=== PATIENT | male | born 1955 | race Caucasian/White ===

== ENCOUNTER 2016-10-29 18:34 | Observation (INO) | payer OTHER ==
[~2016-10-29] VITALS: Ht 170.2 cm; Wt 49.0 kg
[~2016-10-29 18:34] MED LIST: CHLORDIAZEPOXID25 MG PO; LEVAQUIN500 MG PO; LIBRIUM25 MG PO; LISINOPRIL5 MG PO; OMEPRAZOLE40 M1 PO; OXAYDO5 MG PO; PEPCID20 MG PO; QUETIAPINE FUM100 MG PO; TUMS500 MG PO
[2016-10-29 21:50] LABS: HEMATOCRIT 38.1 % (38.0-50.0); MCH 34.3 PG (29.0-34.0); MCHC 34.6 G/DL (30.0-36.0); MEAN PLAT.VOLUME 8.8 uM^3 (9.0-12.4); PLATELET COUNT 220 K/uL (156-360); RBC DIS.WIDTH-CV 13.3 % (11.8-14.6); RBC DIS.WIDTH-SD 46.7 % (39-53); RED BLOOD COUNT 3.85 M/uL (4.00-5.50)
[2016-10-29 21:59] LABS: CHLORIDE 109 mEq/L (99-109); POTASSIUM 3.8 mEq/L (3.7-5.4); SODIUM 142 mEq/L (136-147)
[2016-10-29 22:01] LABS: GLUCOSE 106 mg/dL (70-99)
[2016-10-29 22:02] LABS: ANION GAP 8 MEQ/L (2-14)
[2016-10-29 22:03] LABS: TOTAL BILIRUBIN 0.4 mg/dL (0.0-1.0)
[2016-10-29 22:04] LABS: SERUM ETHYL ALCOHOL 268 mg/dL
[2016-10-29 22:05] LABS: ALKALINE PHOSPHATASE 130 IU/L (3-129); GFR ESTIMATE (CALCULATED) > 59 mL/min/
[2016-10-29 22:06] LABS: UREA NITROGEN (BUN) 8 mg/dL (9-23)
[2016-10-30 02:41] VITALS: BP 169/95
[2016-10-30 06:33] LABS: METH RESISTANT S AUREUS PCR NEGATIVE (NEGATIVE)
[2016-10-30 06:35] LABS: PROBE CHECK PASS; SPECIMEN PROCESSING CONTROL PASS
[2016-10-30 07:59] LABS: HEMATOCRIT 36.4 % (38.0-50.0); MCH 34.4 PG (29.0-34.0); MCHC 34.6 G/DL (30.0-36.0); MCV 99.5 FL (86-99); MEAN PLAT.VOLUME 10.1 uM^3 (9.0-12.4); PLATELET COUNT 186 K/uL (156-360); RBC DIS.WIDTH-CV 13.5 % (11.8-14.6); RBC DIS.WIDTH-SD 49.4 % (39-53); RED BLOOD COUNT 3.66 M/uL (4.00-5.50)
[2016-10-30 08:00] LABS: ALKALINE PHOSPHATASE 104 IU/L (3-129); ANION GAP 5 MEQ/L (2-14); CHLORIDE 105 MEQ/L (99-109); GFR ESTIMATE (CALCULATED) > 59 mL/min/; GLUCOSE 131 mg/dL (70-99); HDL CHOLESTEROL 48 MG/DL (Desirable>=40); LDL CHOLESTEROL 85 mg/dL (Desirable<100); NON-HDL CHOLESTEROL 106 mg/dL (Desirable<160); POTASSIUM 3.9 MEQ/L (3.7-5.4); SAMPLE HEMOLYSIS CHECK 0; SAMPLE ICTERIC CHECK 0; SAMPLE LIPEMIA CHECK 0; SODIUM 138 MEQ/L (136-147); TOTAL BILIRUBIN 0.4 MG/DL (0.0-1.0); TOTAL CHOLESTEROL 154 mg/dL (Desirable<200); TRIGLYCERIDES 105 MG/DL (Normal: <150); UREA NITROGEN (BUN) 9 mg/dL (9-23)
[2016-10-30 08:01] LABS: WHITE BLOOD COUNT 6.9 K/uL (4.1-10.2)
[2016-10-30 11:53] VITALS: BP 173/71
[2016-10-30 16:06] VITALS: BP 131/79
[2016-10-30 20:57] LABS: AMPHETAMINES QUANT VALUE 0 NG/ML; BARBITUATES QUANT VALUE 0 NG/ML; BENZODIAZEPINES, URINE SCREEN POSITIVE (200 ng/mL); MARIJUANA QUANT VALUE 0 NG/ML; OPIATES QUANTITATIVE VALUE 0 NG/ML; PHENCYCLIDINE QUANT VALUE 0 NG/ML
[2016-10-30 23:43] VITALS: BP 149/83
[2016-10-31 03:06] VITALS: BP 125/88
[2016-10-31 06:23] LABS: EOSINOPHIL COUNT 0.3 K/uL (0-0.3); HEMATOCRIT 37.9 % (38.0-50.0); IMMATURE GRANULOCYTE (%) 0.3 % (0.0-0.7); LYMPHOCYTE COUNT 2.7 K/uL (1.0-2.8); MCH 34.3 PG (29.0-34.0); MCHC 34.6 G/DL (30.0-36.0); MCV 99.2 FL (86-99); MEAN PLAT.VOLUME 10.7 uM^3 (9.0-12.4); MONOCYTE (%) 11.8 % (3-12); MONOCYTE COUNT 0.7 K/uL (0-0.8); NEUTROPHIL (%) 37.5 % (45-76); NEUTROPHIL COUNT 2.2 K/uL (1.8-6.4); NRBC (%) 0.8 /100 WBC (0-0); PLATELET COUNT 163 K/uL (156-360); RBC DIS.WIDTH-CV 12.9 % (11.8-14.6); RBC DIS.WIDTH-SD 46.4 % (39-53); RED BLOOD COUNT 3.82 M/uL (4.00-5.50)
[2016-10-31 06:50] LABS: ALKALINE PHOSPHATASE 109 IU/L (3-129); ANION GAP 9 MEQ/L (2-14); CHLORIDE 101 MEQ/L (99-109); GFR ESTIMATE (CALCULATED) > 59 mL/min/; POTASSIUM 3.5 MEQ/L (3.7-5.4); SAMPLE HEMOLYSIS CHECK 0; SAMPLE ICTERIC CHECK 0; SAMPLE LIPEMIA CHECK 0; SODIUM 134 MEQ/L (136-147); UREA NITROGEN (BUN) 14 mg/dL (9-23)
[2016-10-31 06:53] LABS: GLUCOSE 198 mg/dL (70-99); TOTAL BILIRUBIN 0.7 MG/DL (0.0-1.0)
[2016-10-31 07:11] LABS: Estimated Average Glucose 128 mg/dL (70-123); HEMOGLOBIN A1c (GLYCOHEMOGLOB) 6.1 % HGB (Below 5.7)
[2016-10-31 08:55] VITALS: BP 121/76
[2016-10-31] MEDS ORDERED: NICOTINE PATCH1 EAC2 TD (09:31)
[2016-10-31] MEDS ORDERED: FOLIC ACID1 MG PO (09:31)
[2016-10-31] MEDS ORDERED: THERAGRAN1 TABLET PO (09:31)
[2016-10-31] MEDS ORDERED: B-1100 MG PO (09:32)
[2016-10-31] MEDS ORDERED: LIBRIUM25 MG PO (09:33)
[2016-10-31 11:58] VITALS: BP 132/86
[2016-10-31] MEDS ORDERED: OXAYDO5 MG PO (13:23)
== END 2016-10-31 14:44 | disposition home or self-care (01) ==
LOC: EME 18:34 → 5WEST 10-30 00:57 → EDOF 10-30 00:57 → 5WEST 10-30 02:04
PROVIDERS: Emergency Medicine; Internal Medicine; Physician Assistant Medical; Student in an Organized Health Care Education/Training Program
DX: M19.011 Primary osteoarthritis, right shoulder (principal); F10.230 Alcohol dependence with withdrawal, uncomplicated; R25.1 Tremor, unspecified; F17.200 Nicotine dependence, unspecified, uncomplicated; I10 Essential (primary) hypertension; F32.9 Major depressive disorder, single episode, unspecified; Y90.8 Blood alcohol level of 240 mg/100 ml or more; Z86.19 Personal history of other infectious and parasitic diseases; J44.9 Chronic obstructive pulmonary disease, unspecified; R74.0 Nonspecific elevation of levels of transaminase and lactic acid dehydrogenase [LDH]; Z80.9 Family history of malignant neoplasm, unspecified
CPT/HCPCS: 70450; 71020; 73030; 80053; 80061; 80306 90; 83036; 85025; 85027; 87641; 93005; 93880; 99281; 99285; G0378; G0480; J1644; S0028

== ENCOUNTER 2016-11-19 13:13 | Inpatient (IN) | payer OTHER ==
[~2016-11-19] VITALS: Ht 170.2 cm; Wt 52.5 kg
[~2016-11-19 13:13] MED LIST changes: +B-1100 MG PO; +FOLIC ACID1 MG PO; +NICOTINE PATCH1 EAC2 TD; +THERAGRAN1 TABLET PO
[2016-11-19 16:46] LABS: HEMATOCRIT 37.7 % (38.0-50.0); MCH 33.7 PG (29.0-34.0); MCHC 34.5 G/DL (30.0-36.0); MCV 97.7 FL (86-99); MEAN PLAT.VOLUME 9.2 uM^3 (9.0-12.4); PLATELET COUNT 164 K/uL (156-360); RBC DIS.WIDTH-CV 12.8 % (11.8-14.6); RBC DIS.WIDTH-SD 46.5 % (39-53); RED BLOOD COUNT 3.86 M/uL (4.00-5.50)
[2016-11-19 16:55] LABS: WHITE BLOOD COUNT 10.8 K/uL (4.1-10.2)
[2016-11-19 16:58] LABS: CHLORIDE 107 mEq/L (99-109); POTASSIUM 3.6 mEq/L (3.7-5.4); SODIUM 141 mEq/L (136-147)
[2016-11-19 17:00] LABS: GLUCOSE 113 mg/dL (70-99)
[2016-11-19 17:01] LABS: ANION GAP 10 MEQ/L (2-14)
[2016-11-19 17:03] LABS: SERUM ETHYL ALCOHOL 257 mg/dL
[2016-11-19 17:04] LABS: GFR ESTIMATE (CALCULATED) > 59 mL/min/
[2016-11-19 17:05] LABS: UREA NITROGEN (BUN) 8 mg/dL (9-23)
[2016-11-19 17:18] LABS: AMPHETAMINE NEGATIVE (500 ng/mL); BARBITURATES NEGATIVE (200 ng/mL); BENZODIAZEPINES PRESUMPTIVE POSITIVE (150 ng/mL); COCAINE NEGATIVE (150 ng/mL); INTERNAL CONTROLS VALID? YES; METHADONE NEGATIVE (200 ng/mL); METHAMPHETAMINE NEGATIVE (500 ng/mL); OPIATES (MORPHINE) NEGATIVE (100 ng/mL); OXYCODONE NEGATIVE (100 ng/mL); PHENCYCLIDINE NEGATIVE (25 ng/mL); PROPOXYPHENE NEGATIVE (300 ng/mL); THC CANNABINOIDS NEGATIVE (50 ng/mL); TRICYCLIC ANTIDEPRESSANTS NEGATIVE (300 ng/mL)
[2016-11-19 17:19] LABS: ADD MEDTOX COMMENT Y
[2016-11-19 19:00] LABS: BENZODIAZEPINES QUANT VALUE 0 NG/ML
[2016-11-19 19:18] LABS: BENZODIAZEPINES, URINE SCREEN Negative (200 ng/mL)
[2016-11-20 04:03] VITALS: BP 153/93
[2016-11-20 07:50] VITALS: BP 167/76
[2016-11-20 14:56] VITALS: BP 152/90
[2016-11-20 19:28] VITALS: BP 141/79
[2016-11-21 10:05] VITALS: BP 113/68
[2016-11-21] MEDS ORDERED: QUETIAPINE FUMA50 MG PO (13:54)
[2016-11-21] MEDS ORDERED: OXCARBAZEPINE300 MG PO (13:54)
[2016-11-21] MEDS ORDERED: KLONOPIN0.5 M1 PO (14:04)
== END 2016-11-21 14:24 | disposition home or self-care (01) | DRG 885 ==
LOC: EME 13:13 → EDOF 11-20 00:52 → 1WEST 11-20 00:52
PROVIDERS: Emergency Medicine
DX: F33.9 Major depressive disorder, recurrent, unspecified (principal); F10.220 Alcohol dependence with intoxication, uncomplicated; F11.90 Opioid use, unspecified, uncomplicated; F12.90 Cannabis use, unspecified, uncomplicated; R45.851 Suicidal ideations; G47.00 Insomnia, unspecified; Y90.8 Blood alcohol level of 240 mg/100 ml or more; I10 Essential (primary) hypertension; J44.9 Chronic obstructive pulmonary disease, unspecified; M06.9 Rheumatoid arthritis, unspecified; B18.2 Chronic viral hepatitis C
CPT/HCPCS: 80048; 83735; 84999; 85027; 90839; 97150 GO; 97166 GO; 99281; 99285; G0480

== ENCOUNTER 2017-01-25 17:01 | Inpatient (IN) | payer OTHER ==
[~2017-01-25] VITALS: Ht 170.2 cm; Wt 52.2 kg
[~2017-01-25 17:01] MED LIST changes: +KLONOPIN0.5 M1 PO; +OXCARBAZEPINE300 MG PO; +QUETIAPINE FUMA50 MG PO
[2017-01-25 18:04] LABS: EOSINOPHIL (%) 1.1 % (0-5); EOSINOPHIL COUNT 0.1 K/uL (0-0.3); HEMATOCRIT 33.3 % (38.0-50.0); IMMATURE GRANULOCYTE (%) 0.9 % (0.0-0.7); IMMATURE GRANULOCYTE COUNT 0.1 K/uL; INSTRUMENT ABS NEUTROPHIL CT 5.8 K/uL; LYMPHOCYTE COUNT 1.4 K/uL (1.0-2.8); MCH 33.7 PG (29.0-34.0); MCHC 34.5 G/DL (30.0-36.0); MCV 97.7 FL (86-99); MEAN PLAT.VOLUME 9.7 uM^3 (9.0-12.4); MONOCYTE (%) 5.7 % (3-12); MONOCYTE COUNT 0.5 K/uL (0-0.8); NEUTROPHIL (%) 73.8 % (45-76); NEUTROPHIL COUNT 5.8 K/uL (1.8-6.4); NRBC (%) 0.3 /100 WBC (0-0); PLATELET COUNT 113 K/uL (156-360); RBC DIS.WIDTH-CV 14.3 % (11.8-14.6); RED BLOOD COUNT 3.41 M/uL (4.00-5.50); WHITE BLOOD COUNT 7.8 K/uL (4.1-10.2)
[2017-01-25 18:13] LABS: CHLORIDE 106 mEq/L (99-109); SODIUM 137 mEq/L (136-147)
[2017-01-25 18:16] LABS: GLUCOSE 111 mg/dL (70-99)
[2017-01-25 18:17] LABS: ANION GAP 13 MEQ/L (2-14)
[2017-01-25 18:18] LABS: TOTAL BILIRUBIN 0.6 mg/dL (0.0-1.0)
[2017-01-25 18:19] LABS: ALKALINE PHOSPHATASE 120 IU/L (3-129); GFR ESTIMATE (CALCULATED) > 59 mL/min/
[2017-01-25 18:20] LABS: UREA NITROGEN (BUN) 7 mg/dL (9-23)
[2017-01-25 18:23] LABS: LIPASE 32 U/L (1.0-51.0)
[2017-01-25 18:26] LABS: TROP-I INTERPRETATION NEGATIVE; TROPONIN-I 0.01 ng/mL (0.0-0.30)
[2017-01-25 20:37] LABS: ADD MIUA? NO; BILIRUBIN NEGATIVE; BLOOD NEGATIVE; COLOR STRAW ((YELLOW)); GLUCOSE (STRIP) NEGATIVE; KETONES NEGATIVE; LEUKOCYTES NEGATIVE; NITRITE NEGATIVE; PROTEIN (STRIP) NEGATIVE; SPECIFIC GRAVITY 1.004 (1.000-1.030); UCUL ADDED? NO; UROBILINOGEN 0.2 MG/DL (0.2-1.0)
[2017-01-25 21:57] LABS: INFLUENZA A VIRAL ANTIGEN NEGATIVE; INFLUENZA B VIRAL ANTIGEN NEGATIVE
[2017-01-26] VITALS (7 sets, daily range): BP systolic 133–161; BP diastolic 77–100
[2017-01-26 00:33] LABS: CHLORIDE 110 mEq/L (99-109); POTASSIUM 2.5 mEq/L (3.7-5.4); SODIUM 139 mEq/L (136-147)
[2017-01-26 00:37] LABS: ANION GAP 11 MEQ/L (2-14); EOSINOPHIL (%) 0.3 % (0-5); HEMATOCRIT 35.4 % (38.0-50.0); IMMATURE GRANULOCYTE (%) 0.5 % (0.0-0.7); INSTRUMENT ABS NEUTROPHIL CT 5.2 K/uL; LYMPHOCYTE COUNT 0.6 K/uL (1.0-2.8); MCH 33.8 PG (29.0-34.0); MCHC 34.2 G/DL (30.0-36.0); MCV 98.9 FL (86-99); MEAN PLAT.VOLUME 8.8 uM^3 (9.0-12.4); MONOCYTE (%) 1.8 % (3-12); MONOCYTE COUNT 0.1 K/uL (0-0.8); NEUTROPHIL (%) 87.7 % (45-76); NEUTROPHIL COUNT 5.2 K/uL (1.8-6.4); PLATELET COUNT 67 K/uL (156-360); RBC DIS.WIDTH-CV 14.5 % (11.8-14.6); RED BLOOD COUNT 3.58 M/uL (4.00-5.50); TOTAL BILIRUBIN 0.6 mg/dL (0.0-1.0)
[2017-01-26 00:39] LABS: ALKALINE PHOSPHATASE 117 IU/L (3-129); GFR ESTIMATE (CALCULATED) > 59 mL/min/
[2017-01-26 00:40] LABS: GLUCOSE 185 mg/dL (70-99); UREA NITROGEN (BUN) 6 mg/dL (9-23)
[2017-01-26 00:41] LABS: DIRECT BILIRUBIN 0.4 mg/dL (0.0-0.3)
[2017-01-26 00:47] LABS: MAGNESIUM 1.1 mg/dL (1.3-2.7)
[2017-01-26 02:18] LABS: LACTATE DEHYDROGENASE 182 IU/L (20-246)
[2017-01-26 02:38] LABS: D-DIMER ELISA > 4.00 mg/L FEU (< 0.57)
[2017-01-26 05:10] LABS: METH RESISTANT S AUREUS PCR NEGATIVE (NEGATIVE)
[2017-01-26 05:13] LABS: PROBE CHECK PASS; SPECIMEN PROCESSING CONTROL PASS
[2017-01-27 04:00] VITALS: BP 134/80
[2017-01-27 07:30] VITALS: BP 138/71
[2017-01-27 07:57] LABS: EOSINOPHIL (%) 0 % (0-5); IMMATURE GRANULOCYTE (%) 0.5 % (0.0-0.7); INSTRUMENT ABS NEUTROPHIL CT 4.8 K/uL; LYMPHOCYTE COUNT 0.5 K/uL (1.0-2.8); MCH 33.8 PG (29.0-34.0); MCHC 33.7 G/DL (30.0-36.0); MCV 100.4 FL (86-99); MONOCYTE (%) 4.8 % (3-12); MONOCYTE COUNT 0.3 K/uL (0-0.8); NEUTROPHIL (%) 85.6 % (45-76); NEUTROPHIL COUNT 4.8 K/uL (1.8-6.4); PLATELET COUNT 63 K/uL (156-360); RBC DIS.WIDTH-CV 14.3 % (11.8-14.6); RBC DIS.WIDTH-SD 52.5 % (39-53); WHITE BLOOD COUNT 5.6 K/uL (4.1-10.2)
[2017-01-27 07:59] LABS: MEAN PLAT.VOLUME 11.2 uM^3 (9.0-12.4); RED BLOOD COUNT 2.69 M/uL (4.00-5.50)
[2017-01-27 08:36] LABS: ALKALINE PHOSPHATASE 77 IU/L (3-129); ANION GAP 6 MEQ/L (2-14); CHLORIDE 102 MEQ/L (99-109); GFR ESTIMATE (CALCULATED) > 59 mL/min/; MAGNESIUM 1.6 mg/dl (1.3-2.7); SAMPLE HEMOLYSIS CHECK 0; SAMPLE ICTERIC CHECK 0; SAMPLE LIPEMIA CHECK 0; TOTAL BILIRUBIN 0.5 MG/DL (0.0-1.0); UREA NITROGEN (BUN) 8 mg/dL (9-23)
[2017-01-27 08:39] LABS: GLUCOSE 688 mg/dL (70-99); POTASSIUM 3.2 MEQ/L (3.7-5.4); SODIUM 132 MEQ/L (136-147)
[2017-01-27 09:08] LABS: INTERNAL CONTROL VALID? YES; MONOSPOT (MONONUCLEOSIS SEROL) NEGATIVE
[2017-01-27 09:15] LABS: INTERNAL CONTROL VALID? YES
[2017-01-27] MEDS ORDERED: METHADONE10 MG PO (10:37)
[2017-01-27] MEDS ORDERED: GABAPENTIN300 MG PO (10:38)
[2017-01-27 11:17] VITALS: BP 144/81
[2017-01-27 11:30] LABS: HIV INDEX 0.06; HIV-1/2 AB/AG COMBO Nonreactive
[2017-01-27 12:30] LABS: GLUCOSE 516 mg/dL (70-99)
[2017-01-27 14:48] LABS: ANION GAP 10 MEQ/L (2-14); CHLORIDE 98 MEQ/L (99-109); GFR ESTIMATE (CALCULATED) > 59 mL/min/; POTASSIUM 4.1 MEQ/L (3.7-5.4); SODIUM 132 MEQ/L (136-147); UREA NITROGEN (BUN) 10 mg/dL (9-23)
[2017-01-27 15:37] VITALS: BP 135/63
[2017-01-27 20:00] VITALS: BP 140/74
[2017-01-27 21:01] LABS: POINT-OF-CARE USER ID ENVMNS
[2017-01-27 23:58] VITALS: BP 131/83
[2017-01-28 04:00] VITALS: BP 164/94
[2017-01-28 08:02] LABS: EOSINOPHIL (%) 0 % (0-5); HEMATOCRIT 28.4 % (38.0-50.0); IMMATURE GRANULOCYTE (%) 0.6 % (0.0-0.7); IMMATURE GRANULOCYTE COUNT 0.1 K/uL; INSTRUMENT ABS NEUTROPHIL CT 9.6 K/uL; LYMPHOCYTE COUNT 0.9 K/uL (1.0-2.8); MCH 33.7 PG (29.0-34.0); MCHC 34.2 G/DL (30.0-36.0); MCV 98.6 FL (86-99); MEAN PLAT.VOLUME 11.4 uM^3 (9.0-12.4); MONOCYTE (%) 5.5 % (3-12); MONOCYTE COUNT 0.6 K/uL (0-0.8); NEUTROPHIL (%) 85.4 % (45-76); NEUTROPHIL COUNT 9.6 K/uL (1.8-6.4); RBC DIS.WIDTH-CV 14.2 % (11.8-14.6); RBC DIS.WIDTH-SD 51.3 % (39-53); RED BLOOD COUNT 2.88 M/uL (4.00-5.50)
[2017-01-28 08:06] LABS: PLATELET COUNT 94 K/uL (156-360); WHITE BLOOD COUNT 11.2 K/uL (4.1-10.2)
[2017-01-28 08:20] LABS: ALKALINE PHOSPHATASE 81 IU/L (3-129); ANION GAP 6 MEQ/L (2-14); CHLORIDE 102 MEQ/L (99-109); GFR ESTIMATE (CALCULATED) > 59 mL/min/; GLUCOSE 340 mg/dL (70-99); POTASSIUM 4.1 MEQ/L (3.7-5.4); SAMPLE HEMOLYSIS CHECK 0; SAMPLE ICTERIC CHECK 0; SAMPLE LIPEMIA CHECK 0; SODIUM 133 MEQ/L (136-147); TOTAL BILIRUBIN 0.5 MG/DL (0.0-1.0); UREA NITROGEN (BUN) 13 mg/dL (9-23)
[2017-01-28 08:21] LABS: MAGNESIUM 1.9 mg/dl (1.3-2.7)
[2017-01-28 08:46] LABS: Estimated Average Glucose 134 mg/dL (70-123); HEMOGLOBIN A1c (GLYCOHEMOGLOB) 6.3 % HGB (Below 5.7)
[2017-01-28 09:00] VITALS: BP 122/99
[2017-01-28 12:00] VITALS: BP 136/104
[2017-01-28 17:00] VITALS: BP 179/95
[2017-01-28 17:30] LABS: GLUCOSE 477 mg/dL (70-99)
[2017-01-30 12:16] LABS: HCV RNA (LOG IU/mL) 6.04 (<1.18)
[2017-01-30 12:26] LABS: POINT-OF-CARE METER ID UU14174216
[2017-01-31 12:33] LABS: DRVVT Mixing Study Interp Not Indicated (()); PROTEIN C FUNCTIONAL ACTIVITY+ 35 % (70-180); PTT-LA 38 sec (<=40); Protein S, Free 86 % normal (57-171); Thrombosis Consult Level Limited (()); dRVVT Screen 34 sec (<=45)
[2017-02-06 13:41] LABS: ANTITHROMBIN III ACTIVITY+ 56 % activi (80-120)
== END 2017-01-28 18:24 | disposition left against medical advice (07) | DRG 871 ==
LOC: EME 17:01 → 4EAST 23:29 → EDOF 23:29 → 4EAST 01-26 00:54
PROVIDERS: Emergency Medicine; Hospitalist; Internal Medicine; Internal Medicine Infectious Disease
DX: A41.9 Sepsis, unspecified organism (principal); J18.9 Pneumonia, unspecified organism; I67.82 Cerebral ischemia; G31.89 Other specified degenerative diseases of nervous system; K86.0 Alcohol-induced chronic pancreatitis; J44.0 Chronic obstructive pulmonary disease with (acute) lower respiratory infection; D69.59 Other secondary thrombocytopenia; D73.5 Infarction of spleen; R55 Syncope and collapse; J44.1 Chronic obstructive pulmonary disease with (acute) exacerbation; E83.42 Hypomagnesemia; R73.9 Hyperglycemia, unspecified; I10 Essential (primary) hypertension; F10.10 Alcohol abuse, uncomplicated; E87.6 Hypokalemia; G89.29 Other chronic pain; M06.9 Rheumatoid arthritis, unspecified; K21.9 Gastro-esophageal reflux disease without esophagitis; Z86.19 Personal history of other infectious and parasitic diseases; F17.210 Nicotine dependence, cigarettes, uncomplicated; T38.0X5A Adverse effect of glucocorticoids and synthetic analogues, initial encounter; B19.20 Unspecified viral hepatitis C without hepatic coma; F12.90 Cannabis use, unspecified, uncomplicated; R29.6 Repeated falls; R53.1 Weakness; I70.209 Unspecified atherosclerosis of native arteries of extremities, unspecified extremity; M25.511 Pain in right shoulder; R01.1 Cardiac murmur, unspecified; D64.9 Anemia, unspecified; F10.239 Alcohol dependence with withdrawal, unspecified
CPT/HCPCS: 70450; 71010; 71260; 74177; 80048; 80048 91; 80053; 80076; 81003; 81240 90; 82948; 83036; 83090 90; 83605; 83615; 83690; 83735; 84484; 84999; 85025; 85049; 85240 90; 85300 90; 85303 90; 85305 90; 85306 90; 85307 90; 85379; 85613 90; 85730 90; 86146 90; 86147 90; 86308; 86703; 87040; 87070; 87205; 87449; 87502; 87522 90; 87641; 93005; 93306; 94010; 94640; 94640 76; 94760; 99202; 99281; 99285; J0456; J1815; J2405; J2543; J2920; J3360; J3370; J3475; J3480; J7030; J7050; J7512

== ENCOUNTER 2017-05-29 18:33 | Observation (INO) | payer OTHER ==
[~2017-05-29] VITALS: Ht 170.2 cm; Wt 50.7 kg
[~2017-05-29 18:33] MED LIST changes: +GABAPENTIN300 MG PO; +METHADONE10 MG PO
[2017-05-29 20:22] LABS: HEMATOCRIT 35.9 % (38.0-50.0); MCH 34.5 PG (29.0-34.0); MCHC 34.8 G/DL (30.0-36.0); MCV 99.2 FL (86-99); MEAN PLAT.VOLUME 9.8 uM^3 (9.0-12.4); PLATELET COUNT 164 K/uL (156-360); RBC DIS.WIDTH-CV 14.3 % (11.8-14.6); RBC DIS.WIDTH-SD 52.3 % (39-53); RED BLOOD COUNT 3.62 M/uL (4.00-5.50); WHITE BLOOD COUNT 10.2 K/uL (4.1-10.2)
[2017-05-29 20:31] LABS: CHLORIDE 108 mEq/L (99-109); SODIUM 139 mEq/L (136-147)
[2017-05-29 20:34] LABS: GLUCOSE 105 mg/dL (70-99)
[2017-05-29 20:35] LABS: ANION GAP 12 MEQ/L (2-14); TOTAL BILIRUBIN 0.4 mg/dL (0.0-1.0)
[2017-05-29 20:37] LABS: ALKALINE PHOSPHATASE 139 IU/L (3-129); GFR ESTIMATE (CALCULATED) > 59 mL/min/; SERUM ETHYL ALCOHOL 242 mg/dL
[2017-05-29 20:38] LABS: UREA NITROGEN (BUN) 12 mg/dL (9-23)
[2017-05-30 00:09] VITALS: BP 178/84
[2017-05-30 04:09] LABS: BASOPHIL COUNT 0.1 K/uL (0-0.1); EOSINOPHIL (%) 2.5 % (0-5); EOSINOPHIL COUNT 0.3 K/uL (0-0.3); HEMATOCRIT 34.5 % (38.0-50.0); IMMATURE GRANULOCYTE (%) 0.7 % (0.0-0.7); IMMATURE GRANULOCYTE COUNT 0.1 K/uL; INSTRUMENT ABS NEUTROPHIL CT 4.4 K/uL; LYMPHOCYTE COUNT 3.9 K/uL (1.0-2.8); MCH 33.8 PG (29.0-34.0); MCHC 33.9 G/DL (30.0-36.0); MCV 99.7 FL (86-99); MEAN PLAT.VOLUME 9.3 uM^3 (9.0-12.4); MONOCYTE (%) 12.7 % (3-12); MONOCYTE COUNT 1.3 K/uL (0-0.8); NEUTROPHIL (%) 44.1 % (45-76); NEUTROPHIL COUNT 4.4 K/uL (1.8-6.4); PLATELET COUNT 138 K/uL (156-360); RBC DIS.WIDTH-CV 14.5 % (11.8-14.6); RBC DIS.WIDTH-SD 53.4 % (39-53); RED BLOOD COUNT 3.46 M/uL (4.00-5.50); WHITE BLOOD COUNT 9.9 K/uL (4.1-10.2)
[2017-05-30 04:18] LABS: CHLORIDE 113 mEq/L (99-109); POTASSIUM 3.5 mEq/L (3.7-5.4); SODIUM 139 mEq/L (136-147)
[2017-05-30 04:20] LABS: GLUCOSE 138 mg/dL (70-99)
[2017-05-30 04:21] VITALS: BP 166/89
[2017-05-30 04:22] LABS: ANION GAP 10 MEQ/L (2-14); TOTAL BILIRUBIN 0.4 mg/dL (0.0-1.0)
[2017-05-30 04:24] LABS: ALKALINE PHOSPHATASE 127 IU/L (3-129); GFR ESTIMATE (CALCULATED) > 59 mL/min/
[2017-05-30 04:25] LABS: UREA NITROGEN (BUN) 11 mg/dL (9-23)
[2017-05-30 07:18] VITALS: BP 149/97
[2017-05-30 08:21] LABS: ADD MIUA? NO; BILIRUBIN NEGATIVE; BLOOD NEGATIVE; COLOR YELLOW ((YELLOW)); GLUCOSE (STRIP) NEGATIVE; KETONES NEGATIVE; LEUKOCYTES NEGATIVE; NITRITE NEGATIVE; PROTEIN (STRIP) NEGATIVE; SPECIFIC GRAVITY 1.005 (1.000-1.030); UROBILINOGEN 0.2 MG/DL (0.2-1.0)
[2017-05-30 11:53] VITALS: BP 161/88
== END 2017-05-30 15:08 | disposition home or self-care (01) ==
LOC: EME 18:33 → EDOF 22:44 → 5WEST 22:44 → EDOF 22:44 → ENRESERV 22:47 → 5WEST 05-30 00:04
PROVIDERS: Internal Medicine; Nurse Practitioner Family
DX: F10.20 Alcohol dependence, uncomplicated (principal); I10 Essential (primary) hypertension; E87.2 Acidosis; E87.6 Hypokalemia; B19.20 Unspecified viral hepatitis C without hepatic coma; F17.210 Nicotine dependence, cigarettes, uncomplicated; J44.9 Chronic obstructive pulmonary disease, unspecified; Y90.8 Blood alcohol level of 240 mg/100 ml or more; R63.6 Underweight; Z91.19 Patient's noncompliance with other medical treatment and regimen; R74.0 Nonspecific elevation of levels of transaminase and lactic acid dehydrogenase [LDH]; W18.30XA Fall on same level, unspecified, initial encounter; Z91.81 History of falling
CPT/HCPCS: 70450; 80053; 81003; 82607; 82728; 82746; 83605; 85025; 85027; 93005; 99281; 99285; G0378; G0480; J1644; J3411; J3475; J7030

== ENCOUNTER 2017-08-28 15:58 | Emergency (ER) | payer OTHER ==
[~2017-08-28] VITALS: Ht 170.2 cm; Wt 43.6 kg
[2017-08-28 16:38] LABS: HEMATOCRIT 33.9 % (38.0-50.0); MCH 34.2 PG (29.0-34.0); MEAN PLAT.VOLUME 10.2 uM^3 (9.0-12.4); PLATELET COUNT 75 K/uL (156-360); RBC DIS.WIDTH-CV 12.9 % (11.8-14.6); RBC DIS.WIDTH-SD 44.4 % (39-53); RED BLOOD COUNT 3.57 M/uL (4.00-5.50); WHITE BLOOD COUNT 8.6 K/uL (4.1-10.2)
[2017-08-28 16:44] LABS: INTER. NORMALIZED RATIO 1.2; PROTHROMBIN TIME 13.1 SEC (10.2-12.9)
[2017-08-28 16:48] LABS: CHLORIDE 100 mEq/L (99-109); SODIUM 136 mEq/L (136-147)
[2017-08-28 16:51] LABS: GLUCOSE 255 mg/dL (70-99)
[2017-08-28 16:52] LABS: ANION GAP 15 MEQ/L (2-14)
[2017-08-28 16:53] LABS: TOTAL BILIRUBIN 1.4 mg/dL (0.0-1.0)
[2017-08-28 16:54] LABS: ALKALINE PHOSPHATASE 139 IU/L (3-129); SERUM ETHYL ALCOHOL < 10 mg/dL
[2017-08-28 16:55] LABS: GFR ESTIMATE (CALCULATED) > 59 mL/min/ (58.99-99999)
[2017-08-28 16:56] LABS: UREA NITROGEN (BUN) 15 mg/dL (9-23)
[2017-08-28 16:58] LABS: LIPASE 16 U/L (1.0-51.0)
[2017-08-28 17:00] LABS: POTASSIUM 2.4 mEq/L (3.7-5.4)
[2017-08-28 18:00] LABS: POINT-OF-CARE METER ID UU13113800
[2017-08-29 01:00] VITALS: BP 132/77
== END 2017-08-29 02:23 | disposition home or self-care (01) ==
LOC: EME 15:58
PROVIDERS: Emergency Medicine Emergency Medical Services
DX: F10.239 Alcohol dependence with withdrawal, unspecified (principal); E86.0 Dehydration; R53.1 Weakness; R11.2 Nausea with vomiting, unspecified; R19.7 Diarrhea, unspecified; R05 Cough; R42 Dizziness and giddiness; R26.2 Difficulty in walking, not elsewhere classified; Z86.73 Personal history of transient ischemic attack (TIA), and cerebral infarction without residual deficits; F17.200 Nicotine dependence, unspecified, uncomplicated
CPT/HCPCS: 80053; 82948; 83690; 85027; 85610; G0480; J2060; J2405; J3411; J3475; J7030; J7042; J7050

== ENCOUNTER 2017-09-24 14:05 | Inpatient (IN) | payer OTHER ==
[~2017-09-24] VITALS: Ht 170.2 cm; Wt 63.1 kg
[2017-09-24 14:53] LABS: BASOPHIL (%) 0.1 % (0-1); EOSINOPHIL (%) 0.1 % (0-5); HEMATOCRIT 30.5 % (38.0-50.0); HEMOGLOBIN 10.2 G/DL (12.5-16.6); IMMATURE GRANULOCYTE (%) 1.9 % (0.0-0.7); LYMPHOCYTE (%) 11.1 % (15-42); LYMPHOCYTE COUNT 2.4 K/uL (1.0-2.8); MCH 33.6 PG (29.0-34.0); MCHC 33.4 G/DL (30.0-36.0); MCV 100.3 FL (86-99); MONOCYTE (%) 6.8 % (3-12); MONOCYTE COUNT 1.5 K/uL (0-0.8); NEUTROPHIL COUNT 17.4 K/uL (1.8-6.4); NRBC (%) 1.2 /100 WBC (0-0); PLATELET COUNT 87 K/uL (156-360); RBC DIS.WIDTH-CV 17.2 % (11.8-14.6); RBC DIS.WIDTH-SD 60.6 % (39-53); RED BLOOD COUNT 3.04 M/uL (4.00-5.50); WHITE BLOOD COUNT 21.8 K/uL (4.1-10.2)
[2017-09-24 14:57] LABS: INTER. NORMALIZED RATIO 1.5
[2017-09-24 14:59] LABS: PTT 35.6 SEC (25-37)
[2017-09-24 15:02] LABS: ALBUMIN 2.5 g/dL (3.2-4.8); CHLORIDE 100 mEq/L (99-109); SODIUM 138 mEq/L (136-147)
[2017-09-24 15:04] LABS: GLUCOSE 131 mg/dL (70-99); TOTAL PROTEIN 5.7 g/dL (6.4-8.3)
[2017-09-24 15:06] LABS: TOTAL BILIRUBIN 3.8 mg/dL (0.0-1.0)
[2017-09-24 15:07] LABS: SERUM ETHYL ALCOHOL < 10 mg/dL
[2017-09-24 15:08] LABS: ALKALINE PHOSPHATASE 126 IU/L (3-129); CREATININE 1.9 mg/dL (0.6-1.3); GFR ESTIMATE (CALCULATED) 38 mL/min/ (58.99-99999)
[2017-09-24 15:09] LABS: UREA NITROGEN (BUN) 20 mg/dL (9-23)
[2017-09-24 15:10] LABS: AST (GOT) 53 IU/L (2-34)
[2017-09-24 15:11] LABS: ALT (GPT) 28 IU/L (3-49); CREATINE KINASE 76 IU/L (1-294); LIPASE 12 U/L (1.0-51.0)
[2017-09-24 15:19] LABS: APPEARANCE CLEAR ((CLEAR)); BILIRUBIN SMALL; BLOOD NEGATIVE; GLUCOSE (STRIP) NEGATIVE; KETONES NEGATIVE; LEUKOCYTES NEGATIVE; NITRITE NEGATIVE; PROTEIN (STRIP) 30; SPECIFIC GRAVITY 1.014 (1.000-1.030); UCUL ADDED? NO
[2017-09-24 15:21] LABS: COLOR DK YELLOW ((YELLOW))
[2017-09-24 15:42] LABS: MAGNESIUM 1.5 mg/dL (1.3-2.7)
[2017-09-24 15:49] LABS: DIRECT BILIRUBIN 2.8 mg/dL (0.0-0.3)
[2017-09-24 15:52] LABS: AMPHETAMINE NEGATIVE (500 ng/mL); BARBITURATES PRESUMPTIVE POSITIVE (200 ng/mL); BENZODIAZEPINES NEGATIVE (150 ng/mL); BUPRENORPHINE NEGATIVE (10 ng/mL); COCAINE NEGATIVE (150 ng/mL); METHADONE NEGATIVE (200 ng/mL); METHAMPHETAMINE NEGATIVE (500 ng/mL); OPIATES (MORPHINE) NEGATIVE (100 ng/mL); OXYCODONE NEGATIVE (100 ng/mL); PHENCYCLIDINE NEGATIVE (25 ng/mL); PROPOXYPHENE NEGATIVE (300 ng/mL); THC CANNABINOIDS NEGATIVE (50 ng/mL); TRICYCLIC ANTIDEPRESSANTS NEGATIVE (300 ng/mL)
[2017-09-24 19:11] LABS: CHLORIDE 110 mEq/L (99-109); SODIUM 139 mEq/L (136-147)
[2017-09-24 19:13] LABS: GLUCOSE 107 mg/dL (70-99)
[2017-09-24 19:17] LABS: CREATININE 1.5 mg/dL (0.6-1.3); GFR ESTIMATE (CALCULATED) 50 mL/min/ (58.99-99999); UREA NITROGEN (BUN) 17 mg/dL (9-23)
[2017-09-24 20:00] VITALS: BP 103/62; BP 104/65
[2017-09-24 21:00] VITALS: BP 100/58
[2017-09-24 22:00] VITALS: BP 103/62
[2017-09-24 22:47] LABS: CHLORIDE 109 MEQ/L (99-109); CREATININE 1.6 MG/DL (0.6-1.3); GFR ESTIMATE (CALCULATED) 46 mL/min/ (58.99-99999); GLUCOSE 101 mg/dL (70-99); POTASSIUM 2.3 MEQ/L (3.7-5.4); SODIUM 137 MEQ/L (136-147); UREA NITROGEN (BUN) 17 mg/dL (9-23)
[2017-09-24 23:00] VITALS: BP 98/54
[2017-09-25] VITALS (18 sets, daily range): BP systolic 80–113; BP diastolic 53–83
[2017-09-25 06:39] LABS: BASOPHIL (%) 0.2 % (0-1); BASOPHIL COUNT 0.1 K/uL (0-0.1); EOSINOPHIL (%) 0.1 % (0-5); HEMOGLOBIN 9.3 G/DL (12.5-16.6); IMMATURE GRANULOCYTE (%) 1.3 % (0.0-0.7); LYMPHOCYTE (%) 6.3 % (15-42); LYMPHOCYTE COUNT 1.8 K/uL (1.0-2.8); MCH 34.7 PG (29.0-34.0); MCHC 35.8 G/DL (30.0-36.0); MONOCYTE (%) 6.4 % (3-12); MONOCYTE COUNT 1.8 K/uL (0-0.8); NEUTROPHIL (%) 85.7 % (45-76); NEUTROPHIL COUNT 24.2 K/uL (1.8-6.4); NRBC (%) 1.7 /100 WBC (0-0); PLATELET COUNT 78 K/uL (156-360); RBC DIS.WIDTH-CV 17.6 % (11.8-14.6); RBC DIS.WIDTH-SD 57.3 % (39-53); RED BLOOD COUNT 2.68 M/uL (4.00-5.50); WHITE BLOOD COUNT 28.2 K/uL (4.1-10.2)
[2017-09-25 07:10] LABS: ALBUMIN 1.9 G/DL (3.2-4.8); ALKALINE PHOSPHATASE 109 IU/L (3-129); ALT (GPT) 29 IU/L (3-49); AST (GOT) 94 IU/L (2-34); CHLORIDE 111 MEQ/L (99-109); CREATININE 1.4 MG/DL (0.6-1.3); GFR ESTIMATE (CALCULATED) 54 mL/min/ (58.99-99999); GLUCOSE 117 mg/dL (70-99); MAGNESIUM 1.8 mg/dl (1.3-2.7); PHOSPHORUS 1.4 mg/dL (2.5-4.9); SODIUM 138 MEQ/L (136-147); TOTAL PROTEIN 4.3 G/DL (6.4-8.3); UREA NITROGEN (BUN) 17 mg/dL (9-23)
[2017-09-26] VITALS (28 sets, daily range): BP systolic 0–134; BP diastolic 0–82
[2017-09-26 03:51] LABS: HEMATOCRIT 28.6 % (38.0-50.0); HEMOGLOBIN 9.9 G/DL (12.5-16.6); MCH 33.8 PG (29.0-34.0); MCHC 34.6 G/DL (30.0-36.0); MCV 97.6 FL (86-99); NRBC (%) 1.4 /100 WBC (0-0); RBC DIS.WIDTH-SD 63.1 % (39-53); RED BLOOD COUNT 2.93 M/uL (4.00-5.50); WHITE BLOOD COUNT 25.5 K/uL (4.1-10.2)
[2017-09-26 03:54] LABS: BASE EXCESS -12.8 mEq/L (-3 to +3); BICARBONATE 14.5 mEq/L (22-26); METHEMOGLOBIN 2.6 % (0-1.5); PCO2 38 mm Hg (35-45)
[2017-09-26 03:55] LABS: COMMENTS - BLOOD GASES C; DEVICE VM; FI02 50 %; O2 FLOW 12 L/MIN; PO2 < 32 mm Hg (80-100); SITE LF; TOTAL RESP RATE 35 resp/min; pH 7.19 (7.35-7.45)
[2017-09-26 03:58] LABS: PLATELET COUNT 104 K/uL (156-360)
[2017-09-26 03:59] LABS: CHLORIDE 118 mEq/L (99-109); POTASSIUM 2.7 mEq/L (3.7-5.4); SODIUM 142 mEq/L (136-147)
[2017-09-26 04:02] LABS: GLUCOSE 140 mg/dL (70-99)
[2017-09-26 04:05] LABS: CREATININE 1.5 mg/dL (0.6-1.3); GFR ESTIMATE (CALCULATED) 50 mL/min/ (58.99-99999); PHOSPHORUS 3.3 mg/dL (2.5-4.9)
[2017-09-26 04:06] LABS: UREA NITROGEN (BUN) 18 mg/dL (9-23)
[2017-09-26 05:24] LABS: BASE EXCESS -10.6 mEq/L (-3 to +3); BICARBONATE 14.9 mEq/L (22-26); METHEMOGLOBIN 1.5 % (0-1.5); PCO2 31 mm Hg (35-45); PO2 273 mm Hg (80-100); SITE LB; pH 7.29 (7.35-7.45)
[2017-09-26 05:25] LABS: COMMENTS - BLOOD GASES C; DEVICE VENT; FI02 100 %; MECHANICAL RATE 14 resp/min; MODE AC; PEEP 5 CM/H20; TIDAL VOLUME 300 ML; TOTAL RESP RATE 31 resp/min
[2017-09-26 09:41] LABS: INTER. NORMALIZED RATIO 1.8
[2017-09-26 10:11] LABS: CARBON DIOXIDE (BICARBONATE) 14.1 MEQ/L (20-31)
[2017-09-26 11:11] LABS: BASE EXCESS -12.4 mEq/L (-3 to +3); BICARBONATE 12.1 mEq/L (22-26); COMMENTS - BLOOD GASES C+ANA; DEVICE 980 PB; FI02 65 %; MECHANICAL RATE 14 resp/min; METHEMOGLOBIN 1.3 % (0-1.5); MODE AC; PCO2 23 mm Hg (35-45); PEEP 8 CM/H20; PO2 125 mm Hg (80-100); SITE ALINE; TIDAL VOLUME 400 ML; TOTAL RESP RATE 22 resp/min; pH 7.33 (7.35-7.45)
[2017-09-26 22:10] LABS: HEMATOCRIT 25.7 % (38.0-50.0); HEMOGLOBIN 8.7 G/DL (12.5-16.6); MCV 100.4 FL (86-99)
[2017-09-27] VITALS (21 sets, daily range): BP systolic 84–131; BP diastolic 53–84
[2017-09-27 08:09] LABS: HEMATOCRIT 23.6 % (38.0-50.0); HEMOGLOBIN 8.1 G/DL (12.5-16.6); MCH 34.3 PG (29.0-34.0); MCHC 34.3 G/DL (30.0-36.0); NRBC (%) 1.4 /100 WBC (0-0); RBC DIS.WIDTH-CV 20.3 % (11.8-14.6); RBC DIS.WIDTH-SD 66.3 % (39-53); RED BLOOD COUNT 2.36 M/uL (4.00-5.50); WHITE BLOOD COUNT 23.7 K/uL (4.1-10.2)
[2017-09-27 08:43] LABS: BASOPHIL (%) 0.2 % (0-1); EOSINOPHIL (%) 1.5 % (0-5); EOSINOPHIL COUNT 0.4 K/uL (0-0.3); IMM.PLATELET FRACTION 16.1 (1-7); IMMATURE GRANULOCYTE (%) 1.3 % (0.0-0.7); LYMPHOCYTE (%) 11.3 % (15-42); LYMPHOCYTE COUNT 2.7 K/uL (1.0-2.8); MONOCYTE (%) 4.2 % (3-12); NEUTROPHIL (%) 81.5 % (45-76); NEUTROPHIL COUNT 19.3 K/uL (1.8-6.4); PLAT.SUFFICIENCY DECREASED
[2017-09-27 08:46] LABS: PLATELET COUNT 48 K/uL (156-360)
[2017-09-27 09:29] LABS: ALBUMIN < 1.5 G/DL (3.2-4.8); ALKALINE PHOSPHATASE 96 IU/L (3-129); ALT (GPT) 32 IU/L (3-49); AST (GOT) 64 IU/L (2-34); CHLORIDE 119 MEQ/L (99-109); CREATININE 1.3 MG/DL (0.6-1.3); GFR ESTIMATE (CALCULATED) > 59 mL/min/ (58.99-99999); GLUCOSE 263 mg/dL (70-99); PHOSPHORUS 1.3 mg/dL (2.5-4.9); SODIUM 145 MEQ/L (136-147); UREA NITROGEN (BUN) 16 mg/dL (9-23)
[2017-09-27 09:30] LABS: MAGNESIUM 2.2 mg/dl (1.3-2.7); POTASSIUM 2.3 MEQ/L (3.7-5.4); TOTAL BILIRUBIN 1.6 MG/DL (0.0-1.0); TOTAL PROTEIN 3.6 G/DL (6.4-8.3)
[2017-09-27 09:43] LABS: VANCOMYCIN, TROUGH 16.7 MCG/ML (10-20)
[2017-09-28] VITALS (30 sets, daily range): BP systolic 69–131; BP diastolic 47–81
[2017-09-28 01:58] LABS: ALBUMIN 2.1 g/dL (3.2-4.8); CHLORIDE 118 mEq/L (99-109); POTASSIUM 2.7 mEq/L (3.7-5.4); SODIUM 145 mEq/L (136-147)
[2017-09-28 01:59] LABS: MAGNESIUM 1.8 mg/dL (1.3-2.7)
[2017-09-28 02:01] LABS: BASOPHIL (%) 0.2 % (0-1); EOSINOPHIL (%) 1.6 % (0-5); EOSINOPHIL COUNT 0.3 K/uL (0-0.3); GLUCOSE 204 mg/dL (70-99); HEMATOCRIT 22.6 % (38.0-50.0); HEMOGLOBIN 7.7 G/DL (12.5-16.6); IMMATURE GRANULOCYTE (%) 0.8 % (0.0-0.7); LYMPHOCYTE (%) 12.3 % (15-42); LYMPHOCYTE COUNT 2.6 K/uL (1.0-2.8); MCH 33.3 PG (29.0-34.0); MCHC 34.1 G/DL (30.0-36.0); MCV 97.8 FL (86-99); MONOCYTE (%) 4.1 % (3-12); MONOCYTE COUNT 0.9 K/uL (0-0.8); NEUTROPHIL COUNT 17.1 K/uL (1.8-6.4); NRBC (%) 1.9 /100 WBC (0-0); RBC DIS.WIDTH-CV 20.3 % (11.8-14.6); RBC DIS.WIDTH-SD 65.1 % (39-53); RED BLOOD COUNT 2.31 M/uL (4.00-5.50); WHITE BLOOD COUNT 21.1 K/uL (4.1-10.2)
[2017-09-28 02:04] LABS: CREATININE 1.2 mg/dL (0.6-1.3); GFR ESTIMATE (CALCULATED) > 59 mL/min/ (58.99-99999); PHOSPHORUS 4.1 mg/dL (2.5-4.9)
[2017-09-28 02:05] LABS: UREA NITROGEN (BUN) 13 mg/dL (9-23)
[2017-09-28 02:06] LABS: AST (GOT) 69 IU/L (2-34)
[2017-09-28 02:07] LABS: ALT (GPT) 31 IU/L (3-49)
[2017-09-28 02:08] LABS: ALKALINE PHOSPHATASE 88 IU/L (3-129); TOTAL BILIRUBIN 1.9 mg/dL (0.0-1.0); TOTAL PROTEIN 3.8 g/dL (6.4-8.3)
[2017-09-28 02:35] LABS: IMM.PLATELET FRACTION 26.4 (1-7); PLAT.SUFFICIENCY VERY DECREASED
[2017-09-28 02:36] LABS: PLATELET COUNT 33 K/uL (156-360)
[2017-09-28 05:17] LABS: C DIFF TOXIN NEGATIVE (NEGATIVE)
[2017-09-28 18:52] LABS: HEMATOCRIT 18.8 % (38.0-50.0); MCH 33.3 PG (29.0-34.0); MCHC 30.3 G/DL (30.0-36.0); RBC DIS.WIDTH-CV 22.3 % (11.8-14.6); RBC DIS.WIDTH-SD 83.1 % (39-53); RED BLOOD COUNT 1.71 M/uL (4.00-5.50); WHITE BLOOD COUNT 19.7 K/uL (4.1-10.2)
[2017-09-28 18:54] LABS: HEMOGLOBIN 5.7 G/DL (12.5-16.6); MCV 109.9 FL (86-99); PLATELET COUNT 112 K/uL (156-360)
[2017-09-28 18:55] LABS: INTER. NORMALIZED RATIO 1.4
[2017-09-28 18:58] LABS: PTT 38.5 SEC (25-37)
[2017-09-28 19:10] LABS: CHLORIDE 117 MEQ/L (99-109); CREATININE 1.4 MG/DL (0.6-1.3); GFR ESTIMATE (CALCULATED) 54 mL/min/ (58.99-99999); GLUCOSE 151 mg/dL (70-99); MAGNESIUM 2.3 mg/dl (1.3-2.7); POTASSIUM 4.5 MEQ/L (3.7-5.4); SODIUM 150 MEQ/L (136-147); UREA NITROGEN (BUN) 14 mg/dL (9-23)
[2017-09-28 19:21] LABS: ABS NEUTROPHIL COUNT 18.5; ANISOCYTOSIS 3+; BAND NEUTROPHILS 8.9 % (0-8.0); EOSINOPHIL ABS CT 0; HYPOCHROMASIA 1+; LYMPHOCYTES 1.8 % (15.0-45.0); MACROCYTES 3+; MICROCYTOSIS 1+; MONOCYTES 4.5 % (0-9.0); PLAT.SUFFICIENCY DECREASED; POLYCHROMASIA 1+; SEG.NEUTROPHILS 84.8 % (46.0-76.0); TARGET CELLS 1+
[2017-09-29] VITALS (11 sets, daily range): BP systolic 91–124; BP diastolic 47–79
[2017-09-29 01:03] LABS: ALBUMIN 3.1 g/dL (3.2-4.8); CHLORIDE 115 mEq/L (99-109); HEMATOCRIT 23.8 % (38.0-50.0); HEMOGLOBIN 7.5 G/DL (12.5-16.6); MCH 34.1 PG (29.0-34.0); MCHC 31.5 G/DL (30.0-36.0); MCV 108.2 FL (86-99); NRBC (%) 9.6 /100 WBC (0-0); POTASSIUM 4.6 mEq/L (3.7-5.4); RBC DIS.WIDTH-CV 19.9 % (11.8-14.6); RBC DIS.WIDTH-SD 74.1 % (39-53); SODIUM 145 mEq/L (136-147); WHITE BLOOD COUNT 17.1 K/uL (4.1-10.2)
[2017-09-29 01:09] LABS: CREATININE 1.2 mg/dL (0.6-1.3); GFR ESTIMATE (CALCULATED) > 59 mL/min/ (58.99-99999)
[2017-09-29 01:10] LABS: UREA NITROGEN (BUN) 11 mg/dL (9-23)
[2017-09-29 01:19] LABS: GLUCOSE 109 mg/dL (70-99); PHOSPHORUS 5.8 mg/dL (2.5-4.9)
[2017-09-29 01:51] LABS: BASOPHIL (%) 0.1 % (0-1); EOSINOPHIL (%) 0 % (0-5); IMMATURE GRANULOCYTE (%) 3.1 % (0.0-0.7); LYMPHOCYTE (%) 1.3 % (15-42); LYMPHOCYTE COUNT 0.2 K/uL (1.0-2.8); MONOCYTE (%) 5.8 % (3-12); NEUTROPHIL (%) 89.7 % (45-76); NEUTROPHIL COUNT 15.4 K/uL (1.8-6.4); PLAT.SUFFICIENCY DECREASED
[2017-09-29 01:52] LABS: PLATELET COUNT 78 K/uL (156-360)
[2017-09-29 02:05] LABS: UR CREATININE CONCENTRATION 35.3 MG/DL
[2017-09-29 06:20] LABS: NRBC (%) 13.2 /100 WBC (0-0)
[2017-09-29 06:25] LABS: HEMOGLOBIN 7.8 G/DL (12.5-16.6); MCH 32.1 PG (29.0-34.0); RBC DIS.WIDTH-CV 19.7 % (11.8-14.6); RBC DIS.WIDTH-SD 70.5 % (39-53); RED BLOOD COUNT 2.43 M/uL (4.00-5.50)
[2017-09-29 06:53] LABS: ALBUMIN 2.7 G/DL (3.2-4.8); ALKALINE PHOSPHATASE 79 IU/L (3-129); ALT (GPT) 34 IU/L (3-49); CHLORIDE 115 MEQ/L (99-109); CREATININE 1.4 MG/DL (0.6-1.3); GFR ESTIMATE (CALCULATED) 54 mL/min/ (58.99-99999); GLUCOSE 85 mg/dL (70-99); PHOSPHORUS 6.3 mg/dL (2.5-4.9); POTASSIUM 4.6 MEQ/L (3.7-5.4); SODIUM 148 MEQ/L (136-147); UREA NITROGEN (BUN) 12 mg/dL (9-23)
[2017-09-29 06:57] LABS: TOTAL BILIRUBIN 2.7 MG/DL (0.0-1.0)
[2017-09-29 06:58] LABS: AST (GOT) 142 IU/L (2-34); TOTAL PROTEIN 4.7 G/DL (6.4-8.3)
[2017-09-29 07:08] LABS: BASOPHIL (%) 0.2 % (0-1); EOSINOPHIL (%) 0 % (0-5); IMMATURE GRANULOCYTE (%) 3.1 % (0.0-0.7); LYMPHOCYTE (%) 3.9 % (15-42); LYMPHOCYTE COUNT 0.6 K/uL (1.0-2.8); MONOCYTE (%) 6.1 % (3-12); MONOCYTE COUNT 0.9 K/uL (0-0.8); NEUTROPHIL (%) 86.7 % (45-76); PLAT.SUFFICIENCY DECREASED
[2017-09-29 07:17] LABS: PLATELET COUNT 54 K/uL (156-360)
== END 2017-09-29 06:41 | DRG 853 ==
LOC: EME 14:05 → EDOF 18:24 → 4WEST 18:24 → ENRESERV 18:35 → 4WEST 19:48
PROVIDERS: Emergency Medicine; Internal Medicine; Specialist; Surgery
DX: A41.9 Sepsis, unspecified organism (principal); R65.21 Severe sepsis with septic shock; J96.00 Acute respiratory failure, unspecified whether with hypoxia or hypercapnia; J18.9 Pneumonia, unspecified organism; K72.00 Acute and subacute hepatic failure without coma; N17.9 Acute kidney failure, unspecified; I46.9 Cardiac arrest, cause unspecified; D65 Disseminated intravascular coagulation [defibrination syndrome]; B18.2 Chronic viral hepatitis C; D63.8 Anemia in other chronic diseases classified elsewhere; E83.39 Other disorders of phosphorus metabolism; E83.51 Hypocalcemia; E87.2 Acidosis; E87.6 Hypokalemia; E87.70 Fluid overload, unspecified; R64 Cachexia; Z68.1 Body mass index [BMI] 19.9 or less, adult; T68.XXXA Hypothermia, initial encounter; X31.XXXA Exposure to excessive natural cold, initial encounter; F10.239 Alcohol dependence with withdrawal, unspecified; I10 Essential (primary) hypertension; J43.9 Emphysema, unspecified; K21.9 Gastro-esophageal reflux disease without esophagitis; K51.00 Ulcerative (chronic) pancolitis without complications; K74.60 Unspecified cirrhosis of liver; G89.29 Other chronic pain; M06.9 Rheumatoid arthritis, unspecified; F32.9 Major depressive disorder, single episode, unspecified; R32 Unspecified urinary incontinence; F17.200 Nicotine dependence, unspecified, uncomplicated; Z59.0 Homelessness; Z82.49 Family history of ischemic heart disease and other diseases of the circulatory system
CPT/HCPCS: 36600; 70450; 71045; 74176; 80048; 80048 91; 80053; 80069; 80202; 81003; 82140; 82248; 82306; 82330; 82533 91; 82550; 82570; 82803; 82948; 83605; 83690; 83735; 84100; 84145 90; 84156; 84300; 84540; 84999; 85014; 85018; 85025; 85025 91; 85027; 85610; 85730; 86141; 86850; 86900; 86901; 86920; 87040; 87070; 87077; 87106; 87186; 87205; 87493; 87502; 87641; 93005; 94002; 94003; 94640; 94640 76; 94667; 94668; 94799; 99202; 99281; 99284; C1751; C1788; G0480; J0295; J0636; J1450; J1644; J1720; J1940; J2060; J2543; J2704; J3010; J3370; J3411; J3475; J3480; J7030; J7040; J7050; J7070; J7120; J7608; P9016; P9017; P9035; P9045; P9047; S0028; S0030